=== PATIENT | female | born 2000 | race Caucasian/White ===

== ENCOUNTER 2019-04-22 13:08 | Day surgery (SDC) | payer OTHER ==
[~2019-04-22] VITALS: Ht 180.3 cm; Wt 84.8 kg
[~2019-04-22 13:08] MED LIST: DEXAMETHASONE 4 MG/ML, 1ML ONE; ETON1VAG VG; ONDANSETRON 2MG/ML, 2ML ONE; PROPOFOL 10 MG/ML, 20ML ONE; ROCURONIUM 10MG/ML,5ML ONE; SUCCINYLCHOLINE 20 MG/ML, 10ML ONE; sleeping med PO
[2019-04-22] MEDS ORDERED: LACTATED RINGERS 1,000 ML IV SCH (13:33)
[2019-04-22] MEDS ORDERED: MIDAZOLAM 1 MG/ML, 2ML ONE (13:44)
[2019-04-22] MEDS ORDERED: FENTANYL PF 250 MCG/5ML ONE (13:44)
[2019-04-22] MEDS ORDERED: ACETAMINOPHEN 500 MG TABLET PO ONE (14:00)
[2019-04-22] MEDS ORDERED: GABAPENTIN 300 MG CAPSULE PO ONE (14:00)
[2019-04-22] MEDS ORDERED: SCOPOLAMINE PATCH, 1.5MG PATCH.TD72 TD ONE (14:00)
[2019-04-22 14:30] LABS: HCG UR SG 1.029 (1.003-1.030)
[2019-04-22] MEDS ORDERED: FENTANYL PF 100 MCG/2ML ONE (15:44)
[2019-04-22] MEDS ORDERED: OXYcodone 5 MG/5 ML ORAL.SOL UDC ONE (15:44)
[2019-04-22] MEDS ORDERED: PROMETHAZINE 25 MG/ML, 1ML IV PRN (16:00)
[2019-04-22] MEDS ORDERED: LABETALOL 5MG/ML, 20ML IV PRN (16:00)
[2019-04-22] MEDS ORDERED: ALBUTEROL SULFATE 2.5 MG/3 ML NPPB PRN (16:00)
[2019-04-22] MEDS ORDERED: FENTANYL PF 100 MCG/2ML IV PRN (16:00)
[2019-04-22] MEDS ORDERED: MEPERIDINE/PF 25MG/0.5ML IVPush PRN (16:00)
[2019-04-22] MEDS ORDERED: ONDANSETRON 2MG/ML, 2ML IVPush PRN (16:00)
[2019-04-22] MEDS ORDERED: METOCLOPRAMIDE 5 MG/ML, 2ML IV PRN (16:00)
[2019-04-22] MEDS ORDERED: hydrALAzine 20 MG/ML, 1ML IV PRN (16:00)
[2019-04-22] MEDS ORDERED: HYDROmorphone 1 MG/ML, 1ML INJ IV PRN (16:00)
[2019-04-22] MEDS ORDERED: OXYcodone 5 MG/5 ML ORAL.SOL UDC PO PRN (16:00)
[2019-04-22] MEDS ORDERED: KETOROLAC 30 MG/1 ML IV PRN (16:00)
== END 2019-04-22 17:30 | disposition home or self-care (01) ==
LOC: OR 13:08
PROVIDERS: ATTEND Otolaryngology
DX: J35.01 Chronic tonsillitis (principal)
CPT/HCPCS: 42826; 81025; J2250; J3010; J7120; 88300; J1100; J2405; J2704; J0330